=== PATIENT | female | born 1985 | race African-American/Black ===

== ENCOUNTER 2016-08-03 19:17 | Emergency (ER) | payer OTHER ==
--- NOTE | ~2016-08-03 | CR141 ---
[facility] A Service of [facility] RADIOLOGY TEXT RESULTS PATIENT: ODILON WATSON LOCATION: SED : 81 UNIT #: [id number] AGE: [address]: Noemi Navarro SEX: F ORDER DR: [id number] [address] [address] [id number] E MR#: [id number] Acc #: [id number] NAME: ODILON WATSON. : 1985 SEX: F STUDY DATE/TIME: 08/03/2016 19:45 UNIT: SED ROOM: STUDY DESCRIPTION: CR Hand Min 3 Views Lt Attending Physician: Noemi Navarro Pa-C Ordering Physician: Physician Non-Staff Primary Care Physician: Greyson Castillo M.D. MEDICAL IMAGING REPORT This report is preliminary unless electronic signature is present. EXAM Three views left hand. HISTORY Hand pain, swelling and numbness, mainly third digit. No injury. TECHNIQUE Three views left hand are reviewed. FINDINGS No acute fracture or dislocation or radiopaque foreign body. IMPRESSION Negative. Dictated by... Jeane Babin M.D. THIS IS AN ELECTRONICALLY VERIFIED REPORT Jeane Babin M.D. at 08/04/2016 12:19 PM SAC/gz TD: 08/04/2016 11:26 JOB #: [id number] MEDICAL IMAGING REPORT Page 1 of 1
[~2016-08-03 19:17] MED LIST: ALBUTEROL17 GM; AMOXICILLIN875 MG PO; AURALGAN OTIC S10 M1 AD; BENZONATATE PO; CLEOCIN HCL300 M1 PO; CLONIDINE PO; FAMOTIDINE PO; FLOXIN OTIC5 M1 OP; FLOXIN OTIC5 ML AD; GENOPTIC5 ML OP; HUMALOG MIX 75/10 ML SUBQ; HUMALOG100 U/M1; HUMULIN N300 U/3 ML SUBQ; K-DUR20 ME1 DOB; LANTUS100 U/ML SUBQ; LEVEMIR; LEVEMIR INJ; LISINOPRIL PO; LISINOPRIL20 MG PO; LOSARTAN POTASS50 MG PO; METOPROLOL TAR25 MG PO; NOVOLOG100 U/ML; PRINIVIL20 M1; PROLENSA1.6 ML OP; TYLENOL #3 PO; ZANTAC; ZOFRAN ODT4 MG DOB; ZYRTEC PO; [UNRECOGNIZED DRUG - OTHER]
== END 2016-08-03 20:18 | disposition home or self-care (01) ==
LOC: SED 19:17
DX: M79.645 Pain in left finger(s) (principal); I10 Essential (primary) hypertension; E11.9 Type 2 diabetes mellitus without complications; Z88.0 Allergy status to penicillin; Z79.4 Long term (current) use of insulin; Z79.899 Other long term (current) drug therapy
CPT/HCPCS: 73130; 99283

== ENCOUNTER 2017-01-24 19:14 | Emergency (ER) | payer OTHER ==
[~2017-01-24] VITALS: Ht 162.6 cm; Wt 104.3 kg
[2017-01-24] MEDS ORDERED: TRESIBA FL100 UNIT/1 SUBQ (19:50)
[2017-01-24] MEDS ORDERED: COZAAR100 MG PO (19:51)
[2017-01-24] MEDS ORDERED: LOPRESSOR PO (19:51)
== END 2017-01-24 21:13 | disposition home or self-care (01) ==
LOC: SED 19:14
DX: H10.9 Unspecified conjunctivitis (principal); H00.11 Chalazion right upper eyelid; E11.9 Type 2 diabetes mellitus without complications; I10 Essential (primary) hypertension; Z88.0 Allergy status to penicillin; Z79.4 Long term (current) use of insulin; Z79.899 Other long term (current) drug therapy
CPT/HCPCS: 99282